=== PATIENT | male | born 2000 | race Caucasian/White ===

== ENCOUNTER 2024-07-10 20:52 | Emergency (ER) | payer BC, SELFPAY ==
[2024-07-10 20:55] VITALS: BP 140/88
--- NOTE | 2024-07-10 22:10 | ED.GENMED ---
History of Present Illness
General
Chief Complaint: Abdominal Pain
Source: patient
Exam Limitations: none
Time Seen by Provider: 07/10/24 21:58
Nursing documentation reviewed up to this point in time: agreed with
History of Present Illness
History of Present Illness:
Patient to ED with complaint of substernal chest pain. States pain started 3 days ago. Pain is constant but intensity varies. No aggravating or alleviating factors. Denies n/v/diaphoresis. No SOB or cough. No prior history of same. Brought
self to ED for eval.
Past History
Past History
ED Past Medical History: Psychiatric (ADHD, anxiety)
ED Past Surgical History: Orthopedic
Social History
Tobacco: Non-smoker
Personal: Single
Employment: Employed
Review of Systems
Review of Systems
Allergies reviewed?: Yes
All Other Systems: ROS reviewed and negative except as documented in HPI and ROS
Constitutional: Reports no symptoms
EENT: Reports no symptoms
Respiratory: Reports no symptoms
Cardiac: Reports chest pain
ABD/GI: Reports no symptoms
: Reports no symptoms
Musculoskeletal: Reports no symptoms
Skin: Reports no symptoms
Neurological: Reports no symptoms
Psychiatric: Reports no symptoms
Phy Exam
General Physical Exam
General Presentation: well appearing and no apparent distress
General age: appears stated age
General Skin: warm and dry
General Habitus: normal
General Mental: alert
Cardiovascular Exam
Cardiovascular Exam: regular rate/rhythm and no edema
Pulmonary Exam
Pulmonary Exam: lungs clear and no respiratory distress
Gastrointestinal Exam
Gastrointestinal Exam: non tender, soft, no organomegaly and non distended
Musculoskeletal Exam
Musculoskeletal Exam: full ROM and neuro vasc intact
Skin Exam
Skin Exam: normal color, warm/dry and no rash
Psychiatric Exam
Psychiatric Exam: normal mood/affect
Course
Orders/Labs/Results
Orders:
Orders
07/10/24 20:53
EKG [Electrocardiogram (*1)] Urgent
Reason for Study: Chest Pain
EKG- Treatment ONCE
07/10/24 22:09
Mag Hydrox/Al Hydrox/Simeth [Maalox] 30 ml Phenobarb/Hyoscy/Atropine/Scop [] 10 ml Viscous Lidocaine 2% [Xylocaine Viscous Cup] 10 ml PO NOW
CR Chest - 2 Views Urgent
Comment:
Reason For Exam: chest pain
07/10/24 22:29
Complete Blood Count/With Diff Urgent
Comprehensive Metabolic Panel Urgent
Lipase Urgent
Troponin I Urgent
07/10/24 22:46
Phenobarb/Hyoscy/Atropine/Scop [] 10 ml .ROUTE .STK-MED ONE
07/10/24 22:47
Mag Hydrox/Al Hydrox/Simeth [Maalox] 30 ml .ROUTE .STK-MED ONE
07/10/24 22:48
Viscous Lidocaine 2% [Xylocaine Viscous Cup] 15 ml .ROUTE .STK-MED ONE
Abnormal Lab Results
07/10/24
22:29
RDW 11.1 L %
(11.5-14.5)
Eosinophils % 6.1 H %
(0-6)
BUN 21 H mg/dl
(9-20)
Glucose 103 H mg/dl
(70-99)
Calcium 10.6 H mg/dl
(8.4-10.2)
ALT 63 H U/L
(0-50)
07/10/24 22:29
07/10/24 22:29
Vital Signs
Initial and Last Documented VS:
Initial Vital Signs
Temp Pulse Resp BP Pulse Ox
98.4 F 86 20 140/88 98
07/10/24 20:55 07/10/24 20:55 07/10/24 20:55 07/10/24 20:55 07/10/24 20:55
Last Documented Vital Signs
Temp Pulse Resp BP Pulse Ox
98.4 F 101 22 129/80 98
07/10/24 20:55 07/10/24 23:00 07/10/24 23:00 07/10/24 23:46 07/10/24 23:46
*Radiology
Radiology exam reviewed: radiology read reviewed
*Pulse Oximetry
Patient hypoxic: no
*Critical Care Note
Total Time (30-74mins, 75-104mins- exclusive of procedures): Not Applicable
Update Note
Update Note:
Improved after kandy allen. Labs, EKG reviewed with him. No concerning findings on exam. Suspect paain is related to reflulx. Recommend pantoprozole daily x 2 weeks, follow up withPCP. Given instuctions on s/s to return to ED and he is
agreeable to plan.
ED Attending Note
-
Portions of this chart may have been created with voice recognition software.� Occasional wrong word or��sound alike� substitutions may have occurred due to the inherent limitations of voice recognition software.
Discharge Plan
Departure
Patient Disposition: Home (Routine Discharge)
Date of Disposition: 07/10/24
Time of Disposition: 23:24
Patient with high blood pressure during this ER visit?: No
Condition: Good
Covid-19: Not Applicable
Discharge Problem:
Chest pain due to GERD
Instructions: Acid Reflux and GERD in Adults (DC)
Prescriptions:
New
pantoprazole [Protonix] 40 mg tablet,delayed release (DR/EC)
40 mg PO DAILY Qty: 30 0RF
Referrals:
Celeste Rojas PA-C [Family Provider] - Follow up in 2-3 days
Viet Jeff MD [Active] - Next open appointment
Interventions
Interventions:
*Risk Screen - Suicide Last Done: 07/10/24 20:55
*General Assessment Last Done: 07/10/24 22:33
*Neglect/Abuse Screening Last Done: 07/10/24 20:55
ED- Fall Risk Assessment Last Done: 07/10/24 22:33
*ED COVID-19 Vaccine History Last Done: 07/10/24 22:33
*Nursing Disposition Last Done: 07/10/24 23:51
EE-Oczuwg-Fitxrhjkel Assessment Last Done: 07/10/24 22:33
ED- Cardiac Assessment Last Done: 07/10/24 22:33
Discharge Date and Time
Discharge Date/Time: 07/10/24 23:52
Print Language: SAMOAN
[2024-07-10 22:23] VITALS: BP 152/89
[2024-07-10 22:32] VITALS: BMI 24.6
[2024-07-10 22:38] LABS: % Basophils 0.9 % (0-2); % Eosinophils 6.1 % (0-6); % Immature Granulocytes 0.2 % (0-0.5); % Monocytes 6.8 % (1.7-9.3); Absolute Basophils 0.1 10^3/uL (0-0.2); Absolute Eosinophils 0.5 10^3/uL (0-0.7); Absolute Lymphocytes 3.1 10^3/uL (1.2-3.4); Absolute Monocytes 0.6 10^3/uL (0.1-0.6); Absolute Neutrophils 4.5 10^3/uL (1.4-6.5); Hematocrit 40.7 % (39.0-52.0); Hemoglobin 14.8 g/dL (13.0-18.0); Mean Corp Hgb Conc. 36.4 g/dL (33.0-37.0); Mean Corpuscular Hgb 30.8 pg (27.0-31.0); Mean Corpuscular Volume 84.6 fL (80.0-94.0); Mean Platelet Volume 8.6 fL (7.4-10.4); Nucleated Red Blood Cells % 0 % (-); Platelet Count 301 10^3/uL (130-400); Red Blood Cell Count 4.81 10^6/uL (4.70-6.10); Red Cell Dist. Width 11.1 % (11.5-14.5); White Blood Cell Count 8.8 10^3/uL (4.8-10.8)
[2024-07-10] MEDS: MAALOX 50 PO (22:51)
[2024-07-10 22:54] LABS: ALT (SGPT) 63 U/L (0-50); AST (SGOT) 37 U/L (17-59); Alkaline Phosphatase 99 U/L (38-126); Blood Urea Nitrogen 21 mg/dl (9-20); Calcium 10.6 mg/dl (8.4-10.2); Carbon Dioxide 27 mmol/L (22-30); Chloride 100 mmol/L (98-107); Estimated Creatinine Clearance > 125 ml/min; Glucose 103 mg/dl (70-99); Lipase 59 U/L (23-300); Potassium 3.9 mmol/L (3.5-5.1); Sodium 141 mmol/L (135-145); Total Bilirubin 0.6 mg/dl (0.2-1.3); Total Protein 7.7 g/dl (6.3-8.2); eGFR > 60.00
[2024-07-10 23:02] LABS: Troponin I < 0.012 ng/ml
[2024-07-10 23:46] VITALS: BP 129/80
== END 2024-07-10 23:52 | disposition home or self-care (01) ==
LOC: EMR 20:52
PROVIDERS: Nurse Practitioner; EMERGENCY PHYSICIAN Emergency Medicine; FAMILY PHYSICIAN Physician Assistant Medical
DX: R07.89 Other chest pain (principal); K21.9 Gastro-esophageal reflux disease without esophagitis; F90.9 Attention-deficit hyperactivity disorder, unspecified type; F41.9 Anxiety disorder, unspecified
CPT/HCPCS: 99283; 71046; 80053; 83690; 84484; 85025; 93005